=== PATIENT | male | born 1975 | race Caucasian/White ===

== ENCOUNTER 2024-09-01 07:49 | Outpatient (CLI) | payer OTHER, SELFPAY ==
--- NOTE | ~2024-09-01 | US_ITS ---
EXAMINATION: US abdomen limited DATE: 09/01/2024 08:15 INDICATION: Splenomegaly. TECHNIQUE: Multiple grayscale ultrasound images of the abdomen were obtained. COMPARISON: None FINDINGS: The spleen is normal in size and measures 12.8 x 6.5 cm. IMPRESSION: 1. Normal spleen. Reviewed, dictated and finalized at location A. ING UNIT MANAGER IMPRESSION: 1. Normal spleen.
== END 2024-09-01 07:50 | disposition home or self-care (01) ==
PROVIDERS: PCP Family Medicine; Visit Provider Family Medicine
DX: R16.1 Splenomegaly, not elsewhere classified (principal)
CPT/HCPCS: 76705

== ENCOUNTER 2025-01-18 15:54 | Emergency (ER) | payer OTHER, SELFPAY ==
[2025-01-18 16:02] VITALS: BP 128/81; PULSE 79; RESP 20; TEMP 36.9; O2SAT 97
--- NOTE | 2025-01-18 17:22 | ED.FEVER ---
HPI - Fever General Chief Complaint: Fever Stated Complaint: Rash/Fever History of Present Illness HPI Narrative: 49-year-old male presented for complaint of sore throat, fever, and rash. Endorses 2 days ago he was fatigue, had temp of 102.5? which broke that evening. The next day red raised lesions were noted to the right hand and a few on the left hand and right thigh. Endorses itching and some discomfort to the sites. Has not taken anything for symptoms. Denies sick contacts. Denies Cough, shortness of breath, wheezing, nausea, vomiting, diarrhea. Related Data Allergies Allergy/AdvReac Type Severity Reaction Status Date / Time No Known Allergies Allergy Verified 01/18/25 16:16 Review of Systems Review of Systems: per HPI Exam Narrative: GENERAL: well-appearing, no acute distress. EYES: conjunctivae clear ENT: Mucous membranes moist. Nose with honey colored crusted lesions. TM pearly [place] with normal light reflex bilaterally; no tragal tenderness. Oropharynx mildly erythematous without lesions. Tonsils not enlarged and without exudate. No drooling, no hoarseness, no trismus, uvula midline. No tripod positioning, hot potato voice, or soft palate swelling. NECK: Supple. No lymphadenopathy CHEST: Clear to auscultation, breath sounds equal. No respiratory distress, speaks in full sentences. HEART: Regular rate and rhythm. No murmur heard. SKIN: Warm, dry, red raised papules noted to right hand and fingers, no active drainage. NEURO: Alert and oriented x3. Course Course Emergency Course: Patient is aware of diagnosis, understands and agrees to treatment plan. Anticipatory guidance given. Patient agrees to follow-up as directed and is aware of reasons to seek care at the emergency department. Portions of this record may have been created with voice recognition software Level of Care: Express Care Visit Vital Signs Vital signs: Vital Signs Temperature 98.4 F 01/18/25 16:02 Pulse Rate 79 01/18/25 16:02 Respiratory Rate 20 01/18/25 16:02 Blood Pressure 128/81 01/18/25 16:02 Pulse Oximetry 97 01/18/25 16:02 Oxygen Delivery Room Air 01/18/25 16:02 Temperature 98.4 F 01/18/25 16:02 Pulse Rate 79 01/18/25 16:02 Respiratory Rate 20 01/18/25 16:02 Blood Pressure 128/81 01/18/25 16:02 Pulse Oximetry 97 01/18/25 16:02 Oxygen Delivery Room Air 01/18/25 16:02 MDM - Fever MDM Narrative Medical decision making narrative: Positive strep reviewed with patient. Discussed physical exam findings. Advised supportive measures and signs/symptoms to go to the ER. Pt is appropriate for outpt treatment and f/u. Differential Diagnosis Differential diagnosis: Likely other ( Influenza, covid, sinusitis, OM, strep pharyngitis, URI) Discharge Plan Discharge Clinical Impression: Strep pharyngitis Patient Disposition: Home Condition: Stable Instructions: Antibiotic Form, Strep Throat (ED) Additional Instructions: Use the ointment as directed on the skin lesions Keep the areas clean and dry- cleanse with mild soap and water and allow to fully dry Avoid scratching to reduce the risk of infection - Take the antibiotic as directed. Fever and sore throat typically resolve within one to three days. Most patients can return to work, after 12 to 24 hours of antibiotic therapy, provided you are fever free and otherwise well. -Eat and drink things that are easy to swallow, like soft foods, cool liquids, tea with honey, or popsicles . -Salt water gargles and/or may use topical anesthetic ( Chloraseptic spray) or lozenges to relieve dryness or throat pain -Alternate Tylenol and ibuprofen as needed for pain and fever as directed. -Frequent hand washing or hand manager strategy & account is one of the best ways to prevent spread of infection. Throw away the toothbrush after 24hours of antibiotic. -Follow up with primary care provider in 2-3 days if condition is not improving -Go to the ER if you have trouble breathing, cannot drink enough fluids, have muffled voice or drooling, difficulty opening your mouth, or severe swelling. Patient Language: Telugu Prescriptions: New amoxicillin 500 mg tablet 1,000 mg PO DAILY 10 Days Qty: 20 0RF mupirocin 2 % ointment 1 applic topical BID 14 Days Qty: 22 0RF Follow-up/Referrals: Jeronimo,MD Candelario [Primary Care Provider] - Time of Disposition: 17:27
[2025-01-18 17:28] LABS: EDSTREPNEGPOS1 Positive (Negative)
== END 2025-01-18 17:35 | disposition home or self-care (01) ==
PROVIDERS: Emergency Provider Nurse Practitioner Family; PCP Family Medicine
DX: J02.0 Streptococcal pharyngitis (principal)
CPT/HCPCS: 87880; 99213; G0463

== ENCOUNTER 2025-01-21 17:01 | Emergency (ER) | payer OTHER, SELFPAY ==
--- NOTE | 2025-01-21 17:04 | ED.SKABFB ---
HPI - Skin/Abscess/Foreign Bdy General Chief complaint: Skin/Abscess/Foreign Body Stated complaint: spots on hands Time Seen by Provider: 01/21/25 17:03 Source: patient Mode of arrival: ambulatory Limitations: no limitations History of Present Illness HPI narrative: Miguel is a 49-year-old male patient presenting to the clinic today with complaints of a rash on his nose, hands, and thighs. He reports he was seen here 3 days ago and diagnosed with strep pharyngitis. Started amoxicillin. Had fever at that time that he was evaluated and did have this similar rash. States that the rash is not improving and seems to be changing slightly. States that it feels as though his thumb feel like they have thimbles on them he is having pain in his feet when walking. Denies any difficulty swallowing or drooling. Denies any shortness of breath or chest pain. He has not had fever since he has been seen at his last visit. Was placed on amoxicillin and given mupirocin cream for his rash on his nose Related Data Allergies Allergy/AdvReac Type Severity Reaction Status Date / Time No Known Allergies Allergy Verified 01/21/25 17:15 Review of Systems Review of Systems: Pertinent positives per HPI. Patient denies any fever, chills, rash, headache, visual changes, dizziness, cough, shortness of breath, chest pain, palpitations, nausea, vomiting, diarrhea, constipation, abdominal pain, or any urinary issues. PMFSH Comments At the time of my signature, I reviewed and agree with the nursing past medical, surgical, social, and family history. There is no relevant family history pertinent to the patient complaint. Exam Narrative: General: Well-developed, well nourished, in no apparent distress Head: Normocephalic, atraumatic Eyes: Pupils equally round and reactive to light bilaterally, EOM intact, sclera and conjunctive clear, no discharge, lids normal Ears: TMs intact and clear, ear canals clear, no drainage, grossly hearing normal. Nose: Nares patent, no discharge, no inflammation, no sinus tenderness. Mouth: Oral pharynx red without lesions or masses, good dentition, MMM. Neck: Supple, trachea midline, no enlargement of anterior or posterior cervical nodes, no thyroid masses or goiter palpable. Cardio: Regular rate and rhythm, s1 and s2 normal, no murmur appreciated. Resp: Clear to auscultation bilaterally, no rhonchi, rales, wheezing or rubs Integumentary: [place], warm, and dry, red, flat, blanchable, macular, nontender rash to bilateral hands, exterior nose, and thighs. Course Course Emergency Course: Portions of this record may have been created with voice recognition software. Level of Care: Express Care Visit Vital Signs Vital signs: Vital Signs Temperature 36.7 C 01/21/25 17:16 Pulse Rate 88 01/21/25 17:16 Respiratory Rate 16 01/21/25 17:16 Blood Pressure 120/84 01/21/25 17:16 Pulse Oximetry 98 01/21/25 17:16 Oxygen Delivery Room Air 01/21/25 17:16 Temperature 36.7 C 01/21/25 17:16 Pulse Rate 88 01/21/25 17:16 Respiratory Rate 16 01/21/25 17:16 Blood Pressure 120/84 01/21/25 17:16 Pulse Oximetry 98 01/21/25 17:16 Oxygen Delivery Room Air 01/21/25 17:16 Vital signs reviewed MDM - Skin/Abscess/Foreign Bdy MDM Narrative Medical decision making narrative: At the time of visit patient is resting comfortably on the exam table. Patient appears to be nontoxic. Patient gave verbal consent to obtain pictures- Reviewed pictures and case with Dr. Dwyer-collaborating MD. Plan: I suspect patient has strep throat and scarlatina. He is to continue taking amoxicillin and using the mupirocin. Other differentials would include [id number], herpes, coxsackie virus, or SJS. Supportive measures were discussed with the patient and they voiced understanding discharge instructions and agrees to treatment plan. Return precautions reviewed Differential Diagnosis Differential diagnosis: Likely abscess of skin or subcutaneous tissue, viral exanthem, dermatophytosis, urticaria, herpes zoster, allergic reaction to drug, cellulitis, eczema, insect bites, impetigo, contact dermatitis and other (Petechiae) Discharge Plan Discharge Clinical Impression: Streptococcal sore throat with scarlatina Patient Disposition: Home Condition: Stable Instructions: Antibiotic Form, Kawasaki Disease (DC), Strep Throat (ED) Additional Instructions: Scarlatina rash versus coxsackie virus Continue medication as prescribed Increase fluids and stay well hydrated Tylenol/motrin for pain/fever Flonase and OTC antihistamines as directed Vicks vapor rub to open sinuses Sinus rinses for congestion Cepacol spray, cough drops, throat lozenges, warm tea with honey/lemon, gargle salt water to soothe throat BRAT diet for diarrhea Clear liquids x 24 hours then advance as tolerated for nausea/vomiting Go to the ED if you develop a worsening in your condition- high fever not controlled by Tylenol or Motrin, dehydration, weakness, lethargy, shortness of breath, or chest pain. Follow up with your PCP or Dermatology in 3-5 days if symptoms persist. Patient Language: [place] Citizen Prescriptions: No Action amoxicillin 500 mg tablet 1,000 mg PO DAILY 10 Days Qty: 20 0RF mupirocin 2 % ointment 1 applic topical BID 14 Days Qty: 22 0RF Follow-up/Referrals: Jeronimo,MD Candelario [Primary Care Provider] - Time of Disposition: 17:34 Quality NIHSS Nursing Documentation ED NIHSS nursing documentation: reviewed/agree
[2025-01-21 17:16] VITALS: BP 120/84; PULSE 88; RESP 16; TEMP 36.7; O2SAT 98
== END 2025-01-21 17:40 | disposition home or self-care (01) ==
PROVIDERS: Emergency Provider Nurse Practitioner Family; PCP Family Medicine
DX: J02.0 Streptococcal pharyngitis (principal); A38.9 Scarlet fever, uncomplicated
CPT/HCPCS: 99211; G0463